=== PATIENT | male | born 1995 | race Caucasian/White ===

== ENCOUNTER 2019-02-05 19:35 | Emergency (ER) | payer BC ==
[~2019-02-05] VITALS: Ht 182.9 cm; Wt 97.5 kg
[2019-02-05 20:00] VITALS: BP_SYST 163
== END 2019-02-05 23:28 | disposition left against medical advice (07) ==
LOC: SED 19:35
DX: R20.0 Anesthesia of skin (principal); Z53.21 Procedure and treatment not carried out due to patient leaving prior to being seen by health care provider